=== PATIENT | male | born 1975 ===

== ENCOUNTER 2016-07-09 16:05 | Emergency (ER) | payer OTHER ==
[~2016-07-09] VITALS: Ht 185.4 cm; Wt 72.6 kg
[~2016-07-09 16:05] MED LIST: BENTYL20 MG PO; BYSTOLIC 5MG5 MG PO; CLARITIN10 MG PO; DESIPRAMINE PO; IMODIUM2 MG PO; LEVSIN/SL0.125 MG SL; LOMOTIL 0.025 M1 TAB PO; NEXIUM 40MG40 MG PO; PROBIOTIC FORMU1 CAP PO; RITE AID KRILL500 MG PO; TYLENOL #31 TAB PO; ZEGERID 20 MG-11 CAP PO; ZOFRAN ODT4 M1 PO
[2016-07-09 16:11] VITALS: BP 143/93
--- NOTE | 2016-07-09 17:15 | ED GI/GU/ABDOMINAL COMPLAINT ---
History of Present Illness General Chief Complaint: Nausea, Vomiting, Diarrhea Stated Complaint: NAUSEA [id number] Source: patient Exam Limitations: no limitations Vital Signs & Intake/Output Vital Signs & Intake/Output Vital Signs Date Time Temp Pulse Resp B/P Pulse O2 O2 Flow FiO2 Ox Delivery Rate 07/09 1611 98.6 74 18 143/93 99 Room Air Room Air Allergies Coded Allergies: MDX - PCN (penicillin) (PCN (PENICILLIN)) (Severe, RASH, HIVES 06/08/16) Penicillins (Severe, ANAPHALACTIC 05/14/16) Reconcile Medications Desipramine (Norpramin 10 MG Tab) 10 MG TABLET 1 TAB PO QPM IBS (Reported) Dicyclomine HCl 20 MG TABLET 1 TAB PO BID PRN SPASM Esomeprazole (Nexium) 40 MG CAPSULE.DR 1 CAP PO BID GASTRITIS Loratadine (Claritin) 10 MG TAB 1 TAB PO DAILY ALLERGIES (Reported) Nebivolol (Bystolic) 5 MG TABLET 1.5 TAB PO DAILY BP (Reported) Nebivolol (Bystolic) 5 MG TABLET 7.5 MG PO DAILY HTN (Reported) OMEPRAZOLE/SODIUM BICARBONATE (Zegerid 20 MG Capsule) 20 MG-1.1 GRAM CAPSULE 1 CAP PO DAILY GI (Reported) OMEPRAZOLE/SODIUM BICARBONATE (Zegerid 20 MG Capsule) 20 MG-1.1 GRAM CAPSULE 20 MG PO DAILY GERD (Reported) Ondansetron (Zofran Odt) 4 MG TAB.RAPDIS 1 TAB PO Q6 PRN NAUSEA Ondansetron (Zofran Odt) 4 MG TAB.RAPDIS 1 TAB PO Q8H PRN NAUSEA Triage Note: TRIAGE: 40 Y/O MALE PRESENTS C/O NAUSEA X1 WEEK AND PO APPETITE. AFEBRILE IN TRIAGE. DENIES VOMITING OR DIARRHEA AT THIS TIME. REPORTS LAST EPISODE OF VOMITUS LAST SUNDAY. Triage Nurses Notes Reviewed? yes Onset: Gradual Duration: week(s): (1), waxing and waning Timing: recent history Quality/Severity: moderate Location: epigastric Prior Abdominal Problems: similar symptoms No Modifying Factors: none Associated Symptoms: abdominal pain, nausea/vomiting HPI: 40 year old male with history of GI issues with recent gastroenteritis who presents to the ER with persistent on/off nausea for the past week. Family memebers were sick with similar symptoms. He states that he needs to feel well by tomorrow because his is starting her chemotherapy cycle tomorrow and he has to take care of their child. No fever or chills. No blood in his vomitus. Past History Travel History Traveled to [place] past 21 day No Medical History Any Pertinent Medical History? see below for history Neurological: NONE EENT: NONE Cardiovascular: hypertension, hyperlipidemia Respiratory: NONE Gastrointestinal: GERD, irritable bowel syndrome, ACID REFLUX GASTRIC ULCERS Jay's esophagus Hepatic: NONE Renal: NONE Musculoskeletal: NONE Psychiatric: NONE Endocrine: NONE Blood Disorders: NONE Cancer(s): NONE [employer]ING/Reproductive: NONE Surgical History Surgical History: upper endoscopy, hernia repair Psychosocial History What is your primary language Mongolian Tobacco Use: Never used ETOH Use: denies use Illicit Drug Use: denies illicit drug use Family History Hx Contributory? No Review of Systems Review of Systems Constitutional: Denies: chills, fever. EENTM: Reports: no symptoms. Respiratory: Reports: no symptoms. Cardiovascular: Reports: no symptoms. GI: Reports: abdominal pain, nausea, vomiting. Genitourinary: Reports: no symptoms. Musculoskeletal: Denies: back pain. Skin: Reports: no symptoms. Neurological/Psychological: Reports: anxiety. Hematologic/Endocrine: Denies: bruising, bleeding. Immunologic/Allergic: Reports: no symptoms. All Other Systems: Reviewed and Negative Physical Exam Physical Exam General Appearance: well developed/nourished, alert, awake, anxious, mild distress Head: atraumatic, normal appearance Eyes: Bilateral: normal appearance, PERRL, EOMI. Ears, Nose, Throat, Mouth: hearing grossly normal, moist mucous membrane Neck: normal inspection, supple, full range of motion Respiratory: normal breath sounds, chest non-tender, no respiratory distress Cardiovascular: regular rate/rhythm Peripheral Pulses: 2+ radial (R), 2+ radial (L) Gastrointestinal: normal bowel sounds, soft, tenderness (epigastric) Back: normal inspection, normal range of motion Neurologic/Psych: no motor/sensory deficits, awake, alert, oriented x 3, normal gait Skin: intact, normal color, warm/dry Core Measures ACS in differential dx? No Severe Sepsis Present: No Septic Shock Present: No Progress Differential Diagnosis: pancreatitis, peptic ulcer, PUD/GERD, perforated viscous , ibs, anxiety, gastroenteritis Plan of Care: Orders Procedure Date/time Status URINALYSIS 07/09 1722 Complete LIPASE 07/09 1722 Complete COMPREHENSIVE METABOLIC PANEL 07/09 1722 Complete CBC WITHOUT DIFFERENTIAL 07/09 172 Complete AMYLASE 07/09 172 Complete Laboratory Tests 07/09/16 1735: Urine Color YEL, Urine Clarity CLEAR, Urine pH 8.0, Ur Specific [place] 1.015, Urine Protein NEG, Urine Ketones NEG, Urine Nitrite NEG, Urine Bilirubin NEG, Urine Urobilinogen 0.2, Ur Leukocyte Esterase NEG, Ur Microscopic EXAM NOT REQUIRED, Urine Hemoglobin NEG, Urine Glucose NEG 07/09/16 1733: Anion Gap 12, Estimated GFR > 60, BUN/Creatinine Ratio 12.2, Glucose 125 H, Calcium 9.5, Total Bilirubin 0.4, AST 32, ALT 54, Alkaline Phosphatase 59, Total Protein 7.4, Albumin 4.4, Globulin 3.0, Albumin/Globulin Ratio 1.5, Amylase 59, Lipase 147, CBC w Diff NO MAN DIFF REQ, RBC 5.58, MCV 86.8, MCH 29.0, RDW 12.3, MPV 7.4, Gran % 64.2, Lymphocytes % 30.0, Monocytes % 4.2, Eosinophils % 1.3, Basophils % 0.3, Absolute Granulocytes 4.0, Absolute Lymphocytes 1.9, Absolute Monocytes 0.3, Absolute Eosinophils 0.1, Absolute Basophils 0, PUBS MCHC 33.5 07/09/2016 6:18:03 PM Lab work is within normal limits. Patient is feeling much better after Zofran and Bentyl administration. He was able to urinate and it is clear at this time. He will follow-up with his outpatient endoscopy on . Prescriptions called in for Zofran and Bentyl to the [facility] and [facility]coll. (KENNA ZABALA,EDEN) Initial ED EKG: none Departure Departure Time of Disposition: 1817 Disposition: HOME OR SELF CARE Condition: Stable Clinical Impression Primary Impression: Gastritis Referrals: LAURE ZABALA,GUSTAVO Coates (PCP/Family) Referred to [facility] as new patient No Additional Instructions: Take the Zofran and Bentyl as directed. Follow-up with your outpatient GI evaluation on July 28. Please return to the ER for any changing or worsening symptoms. Departure Forms: Customer Survey General Discharge Information Prescriptions: Current Visit Scripts Ondansetron (Zofran Odt) 1 TAB PO Q6 PRN NAUSEA #30 TAB Dicyclomine HCl 1 TAB PO BID PRN SPASM #30 TAB
[2016-07-09 17:43] LABS: ABSOLUTE BASOPHIL COUNT 0 /CUMM (0.0-0.2); ABSOLUTE EOSINOPHIL COUNT 0.1 /CUMM (0.0-0.7); ABSOLUTE LYMPH COUNT 1.9 /CUMM (1.2-3.4); ABSOLUTE MONOCYTE COUNT 0.3 /CUMM (0.10-0.60); BASOPHIL % 0.3 % (0.0-2.0); EOSINOPHIL % 1.3 % (0-5); GRANULOCYTE % 64.2 % (42.2-75.2); HEMATOCRIT 48.4 % (42-52); MEAN CORPUSCULAR HGB CONC 33.5 G/DL (33.0-37.0); MEAN CORPUSCULAR VOLUME 86.8 FL (80.0-94.0); MEAN PLATELET VOLUME 7.4 FL (7.4-10.4); PLATELET COUNT 214 /CUMM (130-400); RBC DISTRIBUTION WIDTH 12.3 % (11.5-14.5); RED BLOOD CELL CT 5.58 /CUMM (4.70-6.10); WHITE BLOOD CELL COUNT 6.2 /CUMM (4.8-10.8)
[2016-07-09] MEDS ORDERED: DICYCLOMINE HCL20 M1 PO (18:17)
[2016-07-09] MEDS ORDERED: ZOFRAN ODT4 M1 PO (18:17)
== END 2016-07-09 18:30 ==
LOC: ERH 16:05
PROVIDERS: Emergency Medicine
DX: K29.70 Gastritis, unspecified, without bleeding (principal)
CPT/HCPCS: 81003; 96372; 96374; 96375; J0500; J2405